=== PATIENT | female | born 1995 | race Caucasian/White ===

== ENCOUNTER 2020-03-13 10:13 | Emergency (ER) | payer OTHER ==
[~2020-03-13] VITALS: Ht 157.5 cm; Wt 95.0 kg
[2020-03-13 11:33] VITALS: BP 126/71
== END 2020-03-13 11:33 | disposition home or self-care (01) ==
LOC: EMS 10:15
DX: R03.0 Elevated blood-pressure reading, without diagnosis of hypertension (principal)